=== PATIENT | female | born 1955 | race Caucasian/White ===

== ENCOUNTER → 2016-10-18 | Outpatient (REF) | payer OTHER ==
[2016-10-18 09:21] LABS: ALBUMIN 3.9 GM/DL (3.2-5.2); ALBUMIN/GLOBULIN RATIO 1.26 (1.00-1.93); ALKALINE PHOSPHATASE 98 U/L (45-117); ALT/SGPT 46 U/L (12-78); ANION GAP 8 MEQ/L (8-16); AST/SGOT 18 U/L (15-37); BILIRUBIN,TOTAL 0.5 MG/DL (0.2-1.0); BLOOD UREA NITROGEN 16 MG/DL (7-18); CALCIUM LEVEL 9.2 MG/DL (8.5-10.1); CARBON DIOXIDE LEVEL 30 MEQ/L (21-32); CHLORIDE LEVEL 106 MEQ/L (98-107); CREATININE FOR GFR 0.76 MG/DL (0.55-1.02); GLOMERULAR FILTRATION RATE > 60.0 (>51); GLUCOSE, FASTING 200 MG/DL (70-105); POTASSIUM SERUM 4.5 MEQ/L (3.5-5.1); SODIUM LEVEL 144 MEQ/L (136-145)
== END ==
LOC: M SFHCPLAZ 07:42
PROVIDERS: ATTEND Nurse Practitioner Family
DX: E11.9 Type 2 diabetes mellitus without complications (principal)

== ENCOUNTER → 2016-11-21 | Outpatient (CLI) | payer OTHER | LOC: M HL 15:18 | PROVIDERS: ATTEND Nurse Practitioner Family | DX: E11.9 Type 2 diabetes mellitus without complications (principal) ==

== ENCOUNTER → 2017-01-15 | Outpatient (REF) | payer OTHER ==
[2017-01-15 18:48] LABS: ANION GAP 9 MEQ/L (8-16); BLOOD UREA NITROGEN 25 MG/DL (7-18); CALCIUM LEVEL 9.6 MG/DL (8.5-10.1); CARBON DIOXIDE LEVEL 30 MEQ/L (21-32); CHLORIDE LEVEL 104 MEQ/L (98-107); GLOMERULAR FILTRATION RATE > 60.0 (>51); GLUCOSE, FASTING 69 MG/DL (70-105); POTASSIUM SERUM 3.9 MEQ/L (3.5-5.1); SODIUM LEVEL 143 MEQ/L (136-145)
== END ==
LOC: M SFHCPLAZ 15:30
PROVIDERS: ATTEND Nurse Practitioner Family
DX: E11.9 Type 2 diabetes mellitus without complications (principal)

== ENCOUNTER → 2017-04-18 | Outpatient (REF) | payer OTHER ==
[2017-04-18 19:31] LABS: ALBUMIN 4.3 GM/DL (3.2-5.2); ALKALINE PHOSPHATASE 118 U/L (45-117); ALT/SGPT 41 U/L (12-78); ANION GAP 11 MEQ/L (8-16); AST/SGOT 22 U/L (15-37); BILIRUBIN,TOTAL 0.6 MG/DL (0.2-1.0); BLOOD UREA NITROGEN 24 MG/DL (7-18); CALCIUM LEVEL 10.1 MG/DL (8.8-10.2); CARBON DIOXIDE LEVEL 23 MEQ/L (21-32); CHLORIDE LEVEL 107 MEQ/L (98-107); CREATININE FOR GFR 0.94 MG/DL (0.55-1.02); GLOMERULAR FILTRATION RATE > 60.0 (>45); GLUCOSE, FASTING 72 MG/DL (80-110); SODIUM LEVEL 141 MEQ/L (136-145); TOTAL PROTEIN 7.6 GM/DL (6.4-8.2)
== END ==
LOC: M SFHCPLAZ 15:10
PROVIDERS: ATTEND Nurse Practitioner Family
DX: E11.9 Type 2 diabetes mellitus without complications (principal)

== ENCOUNTER → 2017-07-03 | Outpatient (CLI) | payer OTHER ==
--- NOTE | 2017-07-03 17:37 | REP ---
Low-dose noncontrast chest CT: History: Tobacco use. Lung cancer screening study. Comparison chest x-ray May 05, 2014. CT findings: There is a 10 mm noncalcified oval shaped pulmonary nodule in the left upper lobe visible on image #19 of [address] study. There may be an eccentric calcification along the medial aspect of this. The lesion is otherwise noncalcified. No other significant pulmonary nodule is appreciated. There is a small area of focal pleural thickening in the minor fissure on the right, on image number 42 and 43. There is extensive left coronary artery vascular calcification. Impression: Positive screening chest CT study. 10 mm noncalcified pulmonary nodule left upper lobe. Consider standard chest CT, preferably with IV contrast and PET/CT. Signed by Carlos Manuel Snell MD 07/04/2017 08:17 A
== END ==
LOC: M RAD 15:30
PROVIDERS: ATTEND Nurse Practitioner Family
DX: Z72.0 Tobacco use (principal)

== ENCOUNTER → 2017-07-20 | Outpatient (REF) | payer OTHER ==
[2017-07-20 18:05] LABS: ALBUMIN 4.4 GM/DL (3.2-5.2); ALBUMIN/GLOBULIN RATIO 1.38 (1.00-1.93); ALKALINE PHOSPHATASE 131 U/L (45-117); ALT/SGPT 37 U/L (12-78); ANION GAP 9 MEQ/L (8-16); AST/SGOT 14 U/L (15-37); BILIRUBIN,TOTAL 0.4 MG/DL (0.2-1.0); BLOOD UREA NITROGEN 25 MG/DL (7-18); CALCIUM LEVEL 9.6 MG/DL (8.8-10.2); CARBON DIOXIDE LEVEL 26 MEQ/L (21-32); CHLORIDE LEVEL 108 MEQ/L (98-107); CHOLESTEROL LEVEL 183 MG/DL (<200); CREATININE FOR GFR 0.92 MG/DL (0.55-1.02); GLOMERULAR FILTRATION RATE > 60.0 (>45); GLUCOSE, FASTING 169 MG/DL (80-110); SODIUM LEVEL 143 MEQ/L (136-145); TOTAL PROTEIN 7.6 GM/DL (6.4-8.2); TRIGLYCERIDES LEVEL 398 MG/DL (<150)
== END ==
LOC: M SFHCPLAZ 15:07
PROVIDERS: ATTEND Nurse Practitioner Family
DX: E78.5 Hyperlipidemia, unspecified (principal); E11.9 Type 2 diabetes mellitus without complications

== ENCOUNTER → 2017-08-15 | Outpatient (CLI) | payer OTHER ==
--- NOTE | 2017-08-15 16:00 | REPMRS ---
Patient History The patient states she had a clinical breast exam in 08/2017. Patient is postmenopausal and has history of other cancer at age 26. Family history of ovarian cancer in mother under age 50, breast cancer in paternal aunt at age 50, and breast cancer in maternal aunt at age 60. Digital Woman Screen Mammo: August 15, 2017 - Exam #: [id number] Bilateral CC and MLO view(s) were taken. Technologist: Kath Pennington, Technologist Prior study comparison: June 23, 2016, digital woman screen mammo performed at [facility]. May 26, 2015, digital woman screen mammo performed at [facility]. FINDINGS: There are scattered fibroglandular densities. There has been no change in the appearance of the mammogram from the prior studies. There is a mild amount of residual fibroglandular tissue which is fairly symmetric. There is no interval development of dominant mass, architectural distortion, or clustered microcalcification suggestive of malignancy. ASSESSMENT: BI-RADS/ACR category 1 mammogram. Negative. Recommendation Routine screening mammogram in 1 year (for women over age 40). This mammogram was interpreted with the aid of an FDA-approved computer-aided dectection system. Electronically Signed By: Shon Pascual MD 08/15/17 1600
== END ==
LOC: M WHC 15:14
PROVIDERS: ATTEND Nurse Practitioner Family
DX: Z12.31 Encounter for screening mammogram for malignant neoplasm of breast (principal)

== ENCOUNTER → 2017-08-20 | Outpatient (CLI) | payer OTHER ==
--- NOTE | 2017-08-20 15:37 | PFTRPT ---
Site: [facility], [address] [place] [address], [id number] ID: [id number] Name: JANET BURKETT Doctor: Olman CONNOLLY, Scotty Tech: Amie Fu RRT Age: 62 Sex: Female Race: Height: 62.00 Inches Weight: 127.00 Lbs BSA: 1.58 Diagnosis: R91.1 F17.218 test meet the ATS standards for acceptability and repeatability. Pt was given four puffs of albuterol for postbronchodilator. Hgb 13.5 g/dL Pre-Bronch Post-Bronch Pred Actual %Pred Actual %Chng SPIROMETRY FVC (L) 3.05 2.36 77 2.56 8 FEV1 (L) 2.35 1.98 84 1.99 FEV1/FVC (%) 78 84 107 78 -7 FEF 25% (L/sec) 4.76 5.10 107 5.41 6 FEF 50% (L/sec) 3.61 3.06 84 3.31 8 FEF 75% (L/sec) 1.20 0.88 73 0.70 -19 FEF 25-75% (L/sec) 2.21 2.26 102 2.18 -3 FEF Max (L/sec) 5.96 5.33 89 5.40 1 FIVC (L) 2.15 2.46 14 FIF 50% (L/sec) 3.26 3.10 94 3.88 25 FIF Max (L/sec) 3.17 3.87 22 MVV (L/min) 87 82 94 LUNG VOLUMES SVC (L) 2.85 2.54 89 IC (L) 2.07 2.41 116 ERV (L) 0.78 0.13 16 TGV (L) 2.68 2.39 89 RV (Pleth) (L) 1.90 2.25 118 TLC (Pleth) (L) 4.75 4.79 100 RV/TLC (Pleth) (%) 40 47 117 DIFFUSION DLCOunc (ml/min/mmHg) 20.75 16.56 79 DLCOcor (ml/min/mmHg) 20.75 16.51 79 DL/VA (ml/min/mmHg/L) 4.37 4.24 97 VA (L) 4.75 3.89 81 AIRWAYS RESISTANCE Raw (cmH2O/L/s) 1.86 1.74 93 Gaw (L/s/cmH2O) 1.03 0.62 60 sRaw (cmH2O*s) 4.76 4.25 89 sGaw (1/cmH2O*s) 0.20 0.25 123 BLOOD GASES Hgb (gm/dL) 13.5
== END ==
LOC: M CARPUL 14:36
PROVIDERS: ATTEND Internal Medicine Pulmonary Disease
DX: R91.1 Solitary pulmonary nodule (principal); F17.218 Nicotine dependence, cigarettes, with other nicotine-induced disorders

== ENCOUNTER → 2017-08-21 | Outpatient (CLI) | payer OTHER ==
--- NOTE | 2017-08-21 16:45 | REP ---
PET/CT: History: Solitary pulmonary nodule left upper lobe. Comparisons: Screening low-dose chest CT study July 03, 2017. TECHNIQUE: 55 minutes following the intravenous injection of 10.8 mCi dose of F-18 FDG, three-dimensional PET scintigraphy is acquired from the skull base to the proximal thighs. Triplanar noncontrast CT scanning is acquired through the same anatomic range for attenuation correction, and image registration with scan parameters optimized to minimize radiation exposure to the patient. PET scintigraphy and CT datasets were fused and displayed on a workstation with multiplanar and projection display capability. PET/CT Findings: The left upper lobe pulmonary nodule is again seen on accompanying chest CT. No discernible FDG accumulation is seen within it. Maximum standard uptake value is 0.9. No other abnormal hypermetabolic uptake is seen within the chest. Head and neck soft tissues are unremarkable. No abnormal hypermetabolic uptake is seen in the abdomen or pelvis. No abnormal adrenal uptake is seen. Impression: Negative PET scintigraphy. CT followup for the left upper lobe pulmonary nodule recommended. Signed by Carlos Manuel Snell MD 08/21/2017 07:46 P
== END ==
LOC: M PLARAD 13:28
PROVIDERS: ATTEND Internal Medicine Pulmonary Disease
DX: R91.1 Solitary pulmonary nodule (principal)
CPT/HCPCS: 78815; A9552

== ENCOUNTER → 2017-10-08 | Outpatient (CLI) | payer OTHER | LOC: M RAD 15:03 | DX: R91.1 Solitary pulmonary nodule (principal) | CPT/HCPCS: 71250 ==

== ENCOUNTER → 2017-12-11 | Outpatient (REF) | payer OTHER ==
[2017-12-11 18:41] LABS: ALBUMIN 4.3 GM/DL (3.2-5.2); ALBUMIN/GLOBULIN RATIO 1.26 (1.00-1.93); ALKALINE PHOSPHATASE 124 U/L (45-117); ALT/SGPT 41 U/L (12-78); ANION GAP 8 MEQ/L (8-16); AST/SGOT 19 U/L (7-37); BILIRUBIN,TOTAL 0.5 MG/DL (0.2-1.0); BLOOD UREA NITROGEN 23 MG/DL (7-18); CARBON DIOXIDE LEVEL 31 MEQ/L (21-32); CHLORIDE LEVEL 104 MEQ/L (98-107); CREATININE FOR GFR 0.92 MG/DL (0.55-1.30); GLOMERULAR FILTRATION RATE > 60.0 (>45); GLUCOSE, FASTING 140 MG/DL (70-100); POTASSIUM SERUM 4.1 MEQ/L (3.5-5.1); SODIUM LEVEL 143 MEQ/L (136-145); TOTAL PROTEIN 7.7 GM/DL (6.4-8.2)
[2017-12-11 21:12] LABS: ESTIMATED AVERAGE GLUCOSE 192 MG/DL (60-110); HEMOGLOBIN A1c 8.3 %
== END ==
LOC: M SFHCPLAZ 16:56
DX: E11.9 Type 2 diabetes mellitus without complications (principal)
CPT/HCPCS: 83036

== ENCOUNTER → 2018-02-28 | Outpatient (REF) | payer OTHER | LOC: M SFHCPLAZ 16:15 | DX: E78.5 Hyperlipidemia, unspecified (principal); E11.9 Type 2 diabetes mellitus without complications ==

== ENCOUNTER → 2018-03-27 | Outpatient (REF) | payer OTHER ==
[2018-03-27 14:03] LABS: ALBUMIN 4.2 GM/DL (3.2-5.2); ALBUMIN/GLOBULIN RATIO 1.31 (1.00-1.93); ALKALINE PHOSPHATASE 111 U/L (45-117); ALT/SGPT 39 U/L (12-78); ANION GAP 12 MEQ/L (8-16); AST/SGOT 19 U/L (7-37); BILIRUBIN,TOTAL 0.6 MG/DL (0.2-1.0); BLOOD UREA NITROGEN 23 MG/DL (7-18); CALCIUM LEVEL 9.4 MG/DL (8.8-10.2); CARBON DIOXIDE LEVEL 26 MEQ/L (21-32); CHLORIDE LEVEL 105 MEQ/L (98-107); CREATININE FOR GFR 0.96 MG/DL (0.55-1.30); GLOMERULAR FILTRATION RATE > 60.0 (>45); GLUCOSE, FASTING 197 MG/DL (70-100); POTASSIUM SERUM 4.1 MEQ/L (3.5-5.1); SODIUM LEVEL 143 MEQ/L (136-145); TOTAL PROTEIN 7.4 GM/DL (6.4-8.2)
[2018-03-27 14:15] LABS: ESTIMATED AVERAGE GLUCOSE 180 MG/DL (60-110); HEMOGLOBIN A1c 7.9 %
== END ==
LOC: M SFHCPLAZ 10:52
DX: E11.9 Type 2 diabetes mellitus without complications (principal)
CPT/HCPCS: 80053

== ENCOUNTER → 2018-04-16 | Outpatient (CLI) | payer OTHER | LOC: M RAD 15:30 | DX: R91.1 Solitary pulmonary nodule (principal); J98.4 Other disorders of lung | CPT/HCPCS: 71250 ==

== ENCOUNTER → 2018-05-15 | Outpatient (REF) ==
[2018-05-15 12:55] LABS: RUBELLA IgG QUALITATIVE IMMUNE (IMMUNE)
[2018-05-16 08:06] LABS: RUBEOLA IgG ANTIBODY >300.0 AU/mL (Immune >29.9)
== END ==
LOC: M LAB 11:34
DX: Z00.00 Encounter for general adult medical examination without abnormal findings (principal)

== ENCOUNTER → 2018-07-16 | Outpatient (REF) | payer OTHER ==
[2018-07-16 12:02] LABS: ESTIMATED AVERAGE GLUCOSE 157 MG/DL (60-110); HEMOGLOBIN A1c 7.1 %
[2018-07-16 12:17] LABS: ALBUMIN/GLOBULIN RATIO 1.21 (1.00-1.93); ALKALINE PHOSPHATASE 116 U/L (45-117); ALT/SGPT 40 U/L (12-78); ANION GAP 12 MEQ/L (8-16); AST/SGOT 20 U/L (7-37); BILIRUBIN,TOTAL 0.6 MG/DL (0.2-1.0); BLOOD UREA NITROGEN 23 MG/DL (7-18); CALCIUM LEVEL 8.8 MG/DL (8.8-10.2); CARBON DIOXIDE LEVEL 23 MEQ/L (21-32); CHLORIDE LEVEL 109 MEQ/L (98-107); CHOLESTEROL LEVEL 168 MG/DL (<200); CREATININE FOR GFR 0.92 MG/DL (0.55-1.30); GLOMERULAR FILTRATION RATE > 60.0 (>45); GLUCOSE, FASTING 236 MG/DL (70-100); HDL CHOLESTEROL 35 MG/DL (>40); LDL CHOLESTEROL 101 MG/DL (<100); NON-HDL-C 133 MG/DL; POTASSIUM SERUM 4.1 MEQ/L (3.5-5.1); SODIUM LEVEL 144 MEQ/L (136-145); TOTAL PROTEIN 7.3 GM/DL (6.4-8.2); TRIGLYCERIDES LEVEL 158 MG/DL (<150)
[2018-07-16 12:32] LABS: CREATININE, URINE 31.7 MG/DL; MALB URINE SIEMENS 8.8 MG/L
[2018-07-16 12:33] LABS: MAU/CREAT RATIO 27.6 MCG/MG (0.0-30.0)
== END ==
LOC: M SFHCPLAZ 09:26
DX: E11.9 Type 2 diabetes mellitus without complications (principal); E78.5 Hyperlipidemia, unspecified; K75.81 Nonalcoholic steatohepatitis (NASH)
CPT/HCPCS: 80053

== ENCOUNTER → 2018-10-22 | Outpatient (CLI) | payer OTHER ==
[~2018-10-22] MED LIST: ASPI1TAB15; ATOR40TA75; GEMF600T5; JARD1TAB; LIPI80TA; METF500T13; TOUJ1.2I; TRUL0.5I SC
--- NOTE | 2018-10-23 08:48 | REP ---
Clinical: Follow-up pulmonary nodule. Technique: She will noncontrast images from the thoracic inlet to the upper abdomen with coronal and sagittal re-formations. Comparison: 04/06/2018, 10/08/2017, 07/03/2017. Findings: The main pulmonary nodule in the anteromedial left upper lobe (image 24) remains stable on all chest CTs dating through 07/03/2017 and can also be identified on the thoracic spine CT dated 09/05/2016 and remains stable. A 9 mm non solid density inseparable from the minor fissure (image 48) also remains stable. The lung dahl are otherwise well aerated, symmetric and clear. No further consolidation, suspicious nodule or mass lesion. No pleural effusion or pneumothorax. Tracheobronchial tree is patent. The mediastinum again demonstrates atherosclerotic disease to the thoracic aorta and coronary arteries without aortic aneurysm or cardiomegaly. No pericardial effusion. Surrounding musculoskeletal structures are intact. Limited upper abdomen demonstrates normal bilateral adrenal glands. Impression: 1. Stable left upper lobe nodule and non solid right-sided density. Findings suggest chronic benign changes. 2. No acute mediastinal or pleuroparenchymal process. 3. Atherosclerotic disease to the aorta and coronary arteries. Electronically Signed by Juan Gorman MD 10/23/2018 08:39 A
== END ==
LOC: M RAD 15:32
PROVIDERS: ATTEND Internal Medicine Pulmonary Disease
DX: I70.0 Atherosclerosis of aorta (principal); R91.1 Solitary pulmonary nodule

== ENCOUNTER → 2018-12-13 | Outpatient (REF) | payer OTHER | LOC: M SFHCPLAZ 16:04 | PROVIDERS: ATTEND Nurse Practitioner Family | DX: E11.9 Type 2 diabetes mellitus without complications (principal); K75.81 Nonalcoholic steatohepatitis (NASH); E55.9 Vitamin D deficiency, unspecified; Z53.9 Procedure and treatment not carried out, unspecified reason ==

== ENCOUNTER → 2019-01-02 | Outpatient (REF) | payer OTHER ==
[2019-01-02 17:51] LABS: ALBUMIN 4.2 GM/DL (3.2-5.2); ALT/SGPT 35 U/L (12-78); BILIRUBIN,TOTAL 0.4 MG/DL (0.2-1.0); BLOOD UREA NITROGEN 21 MG/DL (7-18); CALCIUM LEVEL 9.7 MG/DL (8.8-10.2); CARBON DIOXIDE LEVEL 26 MEQ/L (21-32); CHLORIDE LEVEL 111 MEQ/L (98-107); CREATININE FOR GFR 0.94 MG/DL (0.55-1.30); GLOMERULAR FILTRATION RATE > 60.0 (>45); GLUCOSE, FASTING 98 MG/DL (70-100); SODIUM LEVEL 143 MEQ/L (136-145); TOTAL PROTEIN 7.3 GM/DL (6.4-8.2)
[2019-01-02 18:02] LABS: TOTAL 25(OH) VITAMIN D 35.1 NG/ML (30.0-100.0)
[2019-01-02 19:32] LABS: HEMOGLOBIN A1c 7.1 %
== END ==
LOC: M SFHCPLAZ 15:27
PROVIDERS: ATTEND Nurse Practitioner Family
DX: E11.9 Type 2 diabetes mellitus without complications (principal); E55.9 Vitamin D deficiency, unspecified

== ENCOUNTER → 2019-01-09 | Outpatient (REF) | payer OTHER ==
[2019-01-11 14:43] LABS: HPV HYBRID CAPTURE II Negative (Negative)
== END ==
LOC: M SFHCWAGY 15:52
PROVIDERS: ATTEND Nurse Practitioner Family
DX: Z12.4 Encounter for screening for malignant neoplasm of cervix (principal)

== ENCOUNTER → 2019-01-09 | Outpatient (CLI) | payer OTHER ==
--- NOTE | 2019-01-09 17:57 | REPMRS ---
Patient History The patient states she had a clinical breast exam in 12/2018. Patient is postmenopausal and has history of other cancer at age 26. Family history of breast cancer at age 50 in paternal aunt, breast cancer at age 60 in maternal aunt, ovarian cancer under age 50 in mother. Digital Woman Screen Mammo: January 09, 2019 - Exam #: [id number] Bilateral CC and MLO view(s) were taken. Technologist: Martha Disla Technologist Prior study comparison: August 15, 2017, digital woman screen mammo performed at [facility]. June 23, 2016, digital woman screen mammo performed at [facility]. May 26, 2015, digital woman screen mammo performed at [email or web address] [facility]. FINDINGS: There are scattered fibroglandular densities. There is a moderate amount of residual fibroglandular tissue which is fairly symmetric. There is no interval development of dominant mass, architectural distortion, or clustered microcalcification typical of malignancy. There has been no change in the appearance of the mammogram from the prior studies. 3-D tomosynthesis shows no additional findings. Assessment: BI-RADS/ACR category 1 mammogram. Negative Mammogram. Recommendation Routine screening mammogram of both breasts in 1 year (for women over age 40). This patient's Lifetime Breast Cancer RIsk is estimated at 12.9 %. This mammogram was interpreted with the aid of an FDA-approved computer-aided dectection system. Electronically Signed By: Nate Snell MD 01/09/19 [id number]
== END ==
LOC: M WHC 15:31
PROVIDERS: ATTEND Nurse Practitioner Family
DX: Z12.31 Encounter for screening mammogram for malignant neoplasm of breast (principal); Z80.3 Family history of malignant neoplasm of breast; Z80.41 Family history of malignant neoplasm of ovary

== ENCOUNTER → 2019-03-26 | Outpatient (REF) | payer OTHER ==
[2019-03-26 16:06] LABS: ALBUMIN 3.7 GM/DL (3.2-5.2); ALT/SGPT 31 U/L (12-78); BILIRUBIN,TOTAL 0.4 MG/DL (0.2-1.0); BLOOD UREA NITROGEN 20 MG/DL (7-18); CALCIUM LEVEL 9.7 MG/DL (8.8-10.2); CARBON DIOXIDE LEVEL 29 MEQ/L (21-32); CHLORIDE LEVEL 108 MEQ/L (98-107); CREATININE FOR GFR 0.83 MG/DL (0.55-1.30); GLOMERULAR FILTRATION RATE > 60.0 (>45); GLUCOSE, FASTING 87 MG/DL (70-100); POTASSIUM SERUM 3.9 MEQ/L (3.5-5.1); SODIUM LEVEL 144 MEQ/L (136-145); TOTAL PROTEIN 7.4 GM/DL (6.4-8.2)
[2019-03-26 16:16] LABS: TOTAL 25(OH) VITAMIN D 31.4 NG/ML (30.0-100.0)
== END ==
LOC: M SFHCPLAZ 14:17
PROVIDERS: ATTEND Nurse Practitioner Family
DX: E11.9 Type 2 diabetes mellitus without complications (principal); K76.0 Fatty (change of) liver, not elsewhere classified; E55.9 Vitamin D deficiency, unspecified

== ENCOUNTER → 2019-05-02 | Outpatient (CLI) | payer OTHER ==
--- NOTE | 2019-05-02 15:20 | REP ---
Clinical: Follow-up pulmonary nodule. Technique: Axial noncontrast images from the thoracic inlet to the upper abdomen with coronal and sagittal re-formations. Comparison: 07/03/2017, 04/16/2018 Findings: 9 mm noncalcified nodule in the anteromedial left upper lobe remains stable. Smaller scattered densities likely representing small areas of scarring are also identified and stable. No acute consolidation, new significant nodule, or mass lesion. No pleural effusion. No pneumothorax. Tracheobronchial tree is patent. Atherosclerotic changes to the thoracic aorta and coronary arteries noted without aortic aneurysm or cardiomegaly. No pericardial effusion. No adenopathy. Musculoskeletal structures demonstrate age-related changes. Impression: 1. A 9 mm noncalcified nodule in the left upper lobe remains stable. Finding likely represents benign entity. Consider 6 - 9-month follow-up to ensure stability over greater than 2 years interval. 2. No new significant mediastinal or pleuroparenchymal process appreciated. Electronically Signed by Juan Gorman MD 05/02/2019 03:11 P
== END ==
LOC: M RAD 14:38
PROVIDERS: ATTEND Internal Medicine Pulmonary Disease
DX: R91.1 Solitary pulmonary nodule (principal)

== ENCOUNTER → 2019-12-31 | Outpatient (REF) | payer OTHER ==
[2019-12-31 10:26] LABS: HEMOGLOBIN A1c 7.3 %
[2019-12-31 10:35] LABS: ALBUMIN 4.2 GM/DL (3.2-5.2); ALT/SGPT 33 U/L (12-78); BILIRUBIN,TOTAL 0.4 MG/DL (0.2-1.0); BLOOD UREA NITROGEN 20 MG/DL (7-18); CALCIUM LEVEL 9.4 MG/DL (8.8-10.2); CARBON DIOXIDE LEVEL 28 MEQ/L (21-32); CHLORIDE LEVEL 111 MEQ/L (98-107); CHOLESTEROL LEVEL 155 MG/DL (<200); CHOLESTEROL RISK RATIO 4.428 (<5); CREATININE FOR GFR 0.81 MG/DL (0.55-1.30); GLOMERULAR FILTRATION RATE > 60.0 (>45); GLUCOSE, FASTING 75 MG/DL (70-100); HDL CHOLESTEROL 35 MG/DL (>40); LDL CHOLESTEROL 93 MG/DL (<100); NON-HDL-C 120 MG/DL; POTASSIUM SERUM 4.9 MEQ/L (3.5-5.1); SODIUM LEVEL 143 MEQ/L (136-145); TOTAL PROTEIN 7.7 GM/DL (6.4-8.2); TRIGLYCERIDES LEVEL 133 MG/DL (<150)
[2019-12-31 11:23] LABS: TOTAL 25(OH) VITAMIN D 39.9 NG/ML (30.0-100.0)
[2019-12-31 14:03] LABS: CREATININE, URINE 65.4 MG/DL; MALB URINE SIEMENS 34.7 MG/L
== END ==
LOC: M SFHCPLAZ 07:55
PROVIDERS: ATTEND Nurse Practitioner Family
DX: E11.9 Type 2 diabetes mellitus without complications (principal); E78.2 Mixed hyperlipidemia; E55.9 Vitamin D deficiency, unspecified

== ENCOUNTER → 2020-02-11 | Outpatient (CLI) | payer OTHER ==
--- NOTE | 2020-02-11 10:47 | REPMRS ---
Patient History The patient states she had a clinical breast exam in January 2020.Family history of breast cancer at age 50 in paternal aunt, breast cancer at age 60 in maternal aunt, ovarian cancer under age 50 in mother. Digital Woman Screen Mammo: February 11, 2020 - Exam #: [id number] Bilateral CC and MLO view(s) were taken. Technologist: Flor Ni, Technologist Prior study comparison: January 09, 2019, bilateral digital woman screen mammo performed at [facility]. August 15, 2017, digital woman screen mammo performed at [facility]. June 23, 2016, digital woman screen mammo performed at [facility]. FINDINGS: The breast tissue is heterogeneously dense. This may lower the sensitivity of mammography. The Volpara volumetric breast density category is: C. There is a moderate amount of heterogeneously dense fibroglandular tissue which is fairly symmetric. There is no interval development of dominant mass, architectural distortion, or grouped microcalcification typical of malignancy. There has been no change in the appearance of the mammogram from the prior studies. 3-D tomosynthesis shows no additional findings. Assessment: BI-RADS/ACR category 1 mammogram. Negative Mammogram. Recommendation Routine screening mammogram of both breasts in 1 year (for women over age 40). This patient's Lifetime Breast Cancer RIsk is estimated at 12.0 %. This mammogram was interpreted with the aid of an FDA-approved computer-aided dectection system. Electronically Signed By: Nate Snell MD 02/11/20 [id number]
== END ==
LOC: M WHC 08:51
PROVIDERS: ATTEND Nurse Practitioner Family
DX: Z12.31 Encounter for screening mammogram for malignant neoplasm of breast (principal); Z80.41 Family history of malignant neoplasm of ovary

== ENCOUNTER → 2020-06-11 | Outpatient (CLI) | payer OTHER ==
[~2020-06-11] MED LIST changes: +ASPI-546; -ASPI1TAB15
--- NOTE | 2020-06-29 16:36 | REP ---
LOW-DOSE LUNG SCREENING CT CLINICAL: Personal history of nicotine dependence. TECHNIQUE: Axial noncontrast images from the thoracic inlet to the upper abdomen using low-dose lung screening technique. COMPARISON: 10/08/2017. FINDINGS: A 9 mm nodular density in the apical left upper lobe (Image 17), as well as a 6 mm perifissural density in the right lung (Image 38), remain stable compared to 10/08/2017. The lung dahl are otherwise well-aerated and clear. No consolidation or suspicious nodule/mass lesion is appreciated. The tracheobronchial tree is patent. There is no effusion. Limited evaluation of the mediastinum demonstrates atherosclerotic changes to the thoracic aorta and coronary arteries. IMPRESSION: Lung-RADS 2 benign stable lesions. Management and recommendations include annual low-dose CT evaluation. MTDD
== END ==
LOC: M RAD 15:01
PROVIDERS: ATTEND Internal Medicine Pulmonary Disease
DX: Z12.2 Encounter for screening for malignant neoplasm of respiratory organs (principal); Z87.891 Personal history of nicotine dependence

== ENCOUNTER → 2020-06-30 | Outpatient (REF) | payer OTHER ==
[2020-06-30 14:35] LABS: CREATININE, URINE 49.9 MG/DL; MALB URINE SIEMENS 14.8 MG/L; MAU/CREAT RATIO 29.6 MCG/MG (0.0-30.0)
[2020-06-30 14:50] LABS: HEMOGLOBIN A1c 7.1 %
[2020-06-30 14:53] LABS: ALBUMIN 3.8 GM/DL (3.2-5.2); ALT/SGPT 91 U/L (12-78); BILIRUBIN,TOTAL 0.8 MG/DL (0.2-1.0); BLOOD UREA NITROGEN 14 MG/DL (7-18); CALCIUM LEVEL 9.5 MG/DL (8.8-10.2); CARBON DIOXIDE LEVEL 28 MEQ/L (21-32); CHLORIDE LEVEL 106 MEQ/L (98-107); CREATININE FOR GFR 0.85 MG/DL (0.55-1.30); GLOMERULAR FILTRATION RATE > 60.0 (>45); GLUCOSE, FASTING 263 MG/DL (70-100); POTASSIUM SERUM 4.1 MEQ/L (3.5-5.1); SODIUM LEVEL 140 MEQ/L (136-145); TOTAL PROTEIN 6.9 GM/DL (6.4-8.2)
[2020-06-30 14:59] LABS: TOTAL 25(OH) VITAMIN D 39.1 NG/ML (30.0-100.0)
== END ==
LOC: M PLALAB 10:18
PROVIDERS: ATTEND Nurse Practitioner Family
DX: E55.9 Vitamin D deficiency, unspecified (principal); E11.9 Type 2 diabetes mellitus without complications; Z79.84 Long term (current) use of oral hypoglycemic drugs

== ENCOUNTER → 2021-01-03 | Outpatient (REF) | payer OTHER ==
[2021-01-03 11:43] LABS: HEMOGLOBIN A1c 6.7 %
[2021-01-03 12:18] LABS: CREATININE, URINE 66.7 MG/DL; MALB URINE SIEMENS 41.4 MG/L
[2021-01-03 12:25] LABS: ALBUMIN 4.2 GM/DL (3.2-5.2); ALT/SGPT 61 U/L (12-78); BILIRUBIN,TOTAL 0.9 MG/DL (0.2-1.0); BLOOD UREA NITROGEN 19 MG/DL (7-18); CALCIUM LEVEL 9.9 MG/DL (8.8-10.2); CARBON DIOXIDE LEVEL 29 MEQ/L (21-32); CHLORIDE LEVEL 109 MEQ/L (98-107); CHOLESTEROL LEVEL 172 MG/DL (<200); CHOLESTEROL RISK RATIO 3.739 (<5); CREATININE FOR GFR 0.72 MG/DL (0.55-1.30); GLOMERULAR FILTRATION RATE > 60.0 (>45); GLUCOSE, FASTING 96 MG/DL (70-100); HDL CHOLESTEROL 46 MG/DL (>40); LDL CHOLESTEROL 79 MG/DL (<100); NON-HDL-C 126 MG/DL; POTASSIUM SERUM 4.7 MEQ/L (3.5-5.1); SODIUM LEVEL 144 MEQ/L (136-145); TOTAL 25(OH) VITAMIN D 32.6 NG/ML (30.0-100.0); TOTAL PROTEIN 7.6 GM/DL (6.4-8.2); TRIGLYCERIDES LEVEL 237 MG/DL (<150)
== END ==
LOC: M PLALAB 08:18
PROVIDERS: ATTEND Nurse Practitioner Family
DX: E11.9 Type 2 diabetes mellitus without complications (principal); E78.2 Mixed hyperlipidemia; E55.9 Vitamin D deficiency, unspecified

== ENCOUNTER → 2021-02-17 | Outpatient (CLI) | payer OTHER ==
--- NOTE | 2021-02-17 17:02 | REPMRS ---
Patient History The patient states she had a clinical breast exam in 01/2021. Patient is postmenopausal and has history of other cancer at age 26. Family history of breast cancer at age 50 in paternal aunt, breast cancer at age 60 in maternal aunt, ovarian cancer under age 50 in mother. No Hormone Replacement Therapy Patient states no breast complaints today. Patient has signed MRS History Sheet. Digital Woman Screen Mammo: February 17, 2021 - Exam #: [id number] Bilateral CC and MLO view(s) were taken. Technologist: Kath Pennington, Technologist Prior study comparison: February 11, 2020, bilateral digital woman screen mammo performed at [facility]. January 09, 2019, bilateral digital woman screen mammo performed at [facility]. August 15, 2017, digital woman screen mammo performed at [facility]. FINDINGS: There are scattered fibroglandular densities. The Volpara volumetric breast density category is:B. There has been no change in the appearance of the mammogram from the prior studies. There is a mild amount of scattered fibroglandular density which is fairly symmetric. There is no interval development of dominant mass, architectural distortion, or grouped microcalcification suggestive of malignancy. 3-D tomosynthesis shows no additional findings. Assessment: BI-RADS/ACR category 1 mammogram. Negative Mammogram. Recommendation Routine screening mammogram of both breasts in 1 year (for women over age 40). This patient's [facility] Lifetime Breast Cancer Risk is estimated at 11.5 %. This mammogram was interpreted with the aid of an FDA-approved computer-aided dectection system. Electronically Signed By: Nate Snell MD 02/17/21 [id number]
== END ==
LOC: M WHC 15:25
PROVIDERS: ATTEND Nurse Practitioner Women's Health
DX: Z12.31 Encounter for screening mammogram for malignant neoplasm of breast (principal); Z78.0 Asymptomatic menopausal state; Z85.89 Personal history of malignant neoplasm of other organs and systems; Z80.41 Family history of malignant neoplasm of ovary

== ENCOUNTER → 2021-02-17 | Outpatient (REF) | payer OTHER | LOC: M SFHCWAGY 09:56 | PROVIDERS: ATTEND Nurse Practitioner Women's Health | DX: Z12.4 Encounter for screening for malignant neoplasm of cervix (principal) ==

== ENCOUNTER → 2021-02-23 | Outpatient (REF) | payer OTHER ==
[2021-02-23 14:17] LABS: BLOOD UREA NITROGEN 18 MG/DL (7-18); CALCIUM LEVEL 9.5 MG/DL (8.8-10.2); CARBON DIOXIDE LEVEL 27 MEQ/L (21-32); CHLORIDE LEVEL 108 MEQ/L (98-107); CREATININE FOR GFR 0.77 MG/DL (0.55-1.30); GLOMERULAR FILTRATION RATE > 60.0 (>45); GLUCOSE, FASTING 90 MG/DL (70-100); POTASSIUM SERUM 4.2 MEQ/L (3.5-5.1); SODIUM LEVEL 141 MEQ/L (136-145)
[2021-02-23 14:29] LABS: MALB URINE SIEMENS 25.6 MG/L; MAU/CREAT RATIO 36.5 MCG/MG (0.0-30.0)
== END ==
LOC: M PLALAB 09:59
PROVIDERS: ATTEND Nurse Practitioner Family
DX: E11.9 Type 2 diabetes mellitus without complications (principal)

== ENCOUNTER → 2021-04-01 | Outpatient (CLI) | payer OTHER ==
[2021-04-01 17:06] LABS: BLOOD UREA NITROGEN 20 MG/DL (7-18); CALCIUM LEVEL 9.7 MG/DL (8.8-10.2); CARBON DIOXIDE LEVEL 28 MEQ/L (21-32); CHLORIDE LEVEL 108 MEQ/L (98-107); CREATININE FOR GFR 0.96 MG/DL (0.55-1.30); GLOMERULAR FILTRATION RATE > 60.0 (>45); GLUCOSE, FASTING 107 MG/DL (70-100); POTASSIUM SERUM 4.5 MEQ/L (3.5-5.1); SODIUM LEVEL 142 MEQ/L (136-145)
[2021-04-01 17:20] LABS: MALB URINE SIEMENS 43.2 MG/L; MAU/CREAT RATIO 37.2 MCG/MG (0.0-30.0)
== END ==
LOC: M PLALAB 15:22
PROVIDERS: ATTEND Nurse Practitioner Family
DX: R80.9 Proteinuria, unspecified (principal)

== ENCOUNTER → 2021-07-22 | Outpatient (CLI) | payer OTHER ==
[2021-07-22 10:40] LABS: HEMOGLOBIN A1c 6.5 %
[2021-07-22 10:53] LABS: CREATININE, URINE 77.7 MG/DL; MALB URINE SIEMENS 24.8 MG/L; MAU/CREAT RATIO 31.9 MCG/MG (0.0-30.0)
[2021-07-22 10:56] LABS: ALBUMIN 3.9 GM/DL (3.2-5.2); ALT/SGPT 40 U/L (12-78); BILIRUBIN,TOTAL 0.8 MG/DL (0.2-1.0); BLOOD UREA NITROGEN 18 MG/DL (7-18); CARBON DIOXIDE LEVEL 30 MEQ/L (21-32); CHLORIDE LEVEL 110 MEQ/L (98-107); CHOLESTEROL LEVEL 138 MG/DL (<200); CHOLESTEROL RISK RATIO 3.942 (<5); CREATININE FOR GFR 0.89 MG/DL (0.55-1.30); GLOMERULAR FILTRATION RATE > 60.0 (>45); GLUCOSE, FASTING 99 MG/DL (70-100); HDL CHOLESTEROL 35 MG/DL (>40); LDL CHOLESTEROL 63 MG/DL (<100); NON-HDL-C 103 MG/DL; POTASSIUM SERUM 4.6 MEQ/L (3.5-5.1); SODIUM LEVEL 143 MEQ/L (136-145); TOTAL 25(OH) VITAMIN D 61.1 NG/ML (30.0-100.0); TOTAL PROTEIN 7.3 GM/DL (6.4-8.2); TRIGLYCERIDES LEVEL 200 MG/DL (<150)
== END ==
LOC: M PLALAB 08:27
PROVIDERS: ATTEND Nurse Practitioner Family
DX: E11.9 Type 2 diabetes mellitus without complications (principal); E78.2 Mixed hyperlipidemia; E55.9 Vitamin D deficiency, unspecified

== ENCOUNTER → 2021-11-09 | Outpatient (CLI) | payer OTHER | LOC: M RAD 15:35 | PROVIDERS: ATTEND Internal Medicine Pulmonary Disease | DX: Z12.2 Encounter for screening for malignant neoplasm of respiratory organs (principal); Z87.891 Personal history of nicotine dependence; R91.8 Other nonspecific abnormal finding of lung field ==

== ENCOUNTER → 2022-01-16 | Outpatient (CLI) | payer MEDICARE, OTHER ==
[2022-01-16 13:37] LABS: BASO % 0.1 % (0.0-1.0); EOS # 0.1 10^3/uL (0.0-0.5); EOS % 1.2 % (0.0-3.0); HEMATOCRIT 40.8 % (36.0-47.0); LYMPH # 0.5 10^3/uL (1.5-5.0); MEAN CORPUSCULAR HEMOGLOBIN 28.8 pg (27.0-33.0); MEAN CORPUSCULAR HGB CONC 31.9 g/dl (32.0-36.5); MEAN CORPUSCULAR VOLUME 90.3 fl (80.0-96.0); MONO # 0.3 10^3/uL (0.0-0.8); MONO % 3.2 % (2.0-8.0); NEUTROPHILS # 6.9 10^3/uL (1.5-8.5); NEUTROPHILS % 89.2 % (36.0-66.0); PLATELET COUNT, AUTOMATED 185 10^3/uL (150-450); RED BLOOD COUNT 4.52 10^6/uL (4.00-5.40); WHITE BLOOD COUNT 7.7 10^3/uL (4.0-10.0)
[2022-01-16 14:17] LABS: ALT/SGPT 58 U/L (12-78); BILIRUBIN,TOTAL 0.9 MG/DL (0.2-1.0); BLOOD UREA NITROGEN 20 MG/DL (7-18); CALCIUM LEVEL 9.2 MG/DL (8.8-10.2); CARBON DIOXIDE LEVEL 26 MEQ/L (21-32); CHLORIDE LEVEL 109 MEQ/L (98-107); CHOLESTEROL LEVEL 128 MG/DL (<200); CHOLESTEROL RISK RATIO 3.368 (<5); CREATININE FOR GFR 0.71 MG/DL (0.55-1.30); FREE T4 1.06 NG/DL (0.76-1.46); GLOMERULAR FILTRATION RATE > 60.0 (>45); GLUCOSE, FASTING 63 MG/DL (70-100); HDL CHOLESTEROL 38 MG/DL (>40); LDL CHOLESTEROL 61 MG/DL (<100); NON-HDL-C 90 MG/DL; SODIUM LEVEL 141 MEQ/L (136-145); THYROID STIMULATING HORMONE 0.601 uIU/ML (0.358-3.740); TOTAL 25(OH) VITAMIN D 58.8 NG/ML (30.0-100.0); TOTAL PROTEIN 7.1 GM/DL (6.4-8.2); TRIGLYCERIDES LEVEL 143 MG/DL (<150)
[2022-01-16 14:28] LABS: MALB URINE SIEMENS 26.2 MG/L; MAU/CREAT RATIO 23.3 MCG/MG (0.0-30.0)
== END ==
LOC: M PLALAB 08:41
PROVIDERS: ATTEND Physician Assistant
DX: E11.29 Type 2 diabetes mellitus with other diabetic kidney complication (principal); E78.2 Mixed hyperlipidemia; E55.9 Vitamin D deficiency, unspecified; Z79.899 Other long term (current) drug therapy

== ENCOUNTER → 2022-02-20 | Outpatient (CLI) | payer MEDICARE | LOC: M WHC 09:01 | PROVIDERS: ATTEND Obstetrics & Gynecology | DX: Z12.31 Encounter for screening mammogram for malignant neoplasm of breast (principal); Z80.41 Family history of malignant neoplasm of ovary ==

== ENCOUNTER → 2022-07-12 | Outpatient (CLI) | payer MEDICARE ==
[2022-07-12 10:25] LABS: BASO % 0.7 % (0.0-1.0); EOS # 0.3 10^3/uL (0.0-0.5); EOS % 4.6 % (0.0-3.0); HEMATOCRIT 39.6 % (36.0-47.0); HEMOGLOBIN 12.3 g/dl (12.0-15.5); LYMPH # 1.7 10^3/uL (1.5-5.0); LYMPH % 31.7 % (24.0-44.0); MEAN CORPUSCULAR HEMOGLOBIN 26.5 pg (27.0-33.0); MEAN CORPUSCULAR HGB CONC 31.1 g/dl (32.0-36.5); MEAN CORPUSCULAR VOLUME 85.2 fl (80.0-96.0); MONO # 0.5 10^3/uL (0.0-0.8); MONO % 8.8 % (2.0-8.0); NEUTROPHILS # 2.9 10^3/uL (1.5-8.5); PLATELET COUNT, AUTOMATED 181 10^3/uL (150-450); RED BLOOD COUNT 4.65 10^6/uL (4.00-5.40); WHITE BLOOD COUNT 5.5 10^3/uL (4.0-10.0)
[2022-07-12 10:48] LABS: HEMOGLOBIN A1c 7.1 %
[2022-07-12 11:14] LABS: MAU/CREAT RATIO 36.3 MCG/MG (0.0-30.0)
[2022-07-12 11:16] LABS: BLOOD UREA NITROGEN 18 MG/DL (7-18); CALCIUM LEVEL 9.5 MG/DL (8.8-10.2); CARBON DIOXIDE LEVEL 28 MEQ/L (21-32); CHLORIDE LEVEL 109 MEQ/L (98-107); CREATININE FOR GFR 0.87 MG/DL (0.55-1.30); GLOMERULAR FILTRATION RATE > 60.0 (>45); GLUCOSE, FASTING 126 MG/DL (70-100); POTASSIUM SERUM 4.5 MEQ/L (3.5-5.1); SODIUM LEVEL 141 MEQ/L (136-145)
== END ==
LOC: M PLALAB 08:45
PROVIDERS: ATTEND Physician Assistant
DX: E11.29 Type 2 diabetes mellitus with other diabetic kidney complication (principal)

== ENCOUNTER → 2022-11-20 | Outpatient (CLI) | payer MEDICARE | LOC: M RAD 12:25 | PROVIDERS: ATTEND Internal Medicine Pulmonary Disease | DX: Z12.2 Encounter for screening for malignant neoplasm of respiratory organs (principal); Z87.891 Personal history of nicotine dependence; R91.8 Other nonspecific abnormal finding of lung field ==

== ENCOUNTER → 2023-01-09 | Outpatient (CLI) | payer MEDICARE ==
[2023-01-09 16:54] LABS: BASO % 0.7 % (0.0-1.0); EOS # 0.3 10^3/uL (0.0-0.5); EOS % 5.4 % (0.0-3.0); HEMATOCRIT 40.3 % (36.0-47.0); HEMOGLOBIN 12.5 g/dl (12.0-15.5); LYMPH # 2.2 10^3/uL (1.5-5.0); LYMPH % 35.1 % (24.0-44.0); MEAN CORPUSCULAR VOLUME 90.4 fl (80.0-96.0); MONO # 0.5 10^3/uL (0.0-0.8); MONO % 7.3 % (2.0-8.0); NEUTROPHILS # 3.2 10^3/uL (1.5-8.5); NEUTROPHILS % 51.2 % (36.0-66.0); PLATELET COUNT, AUTOMATED 185 10^3/uL (150-450); RED BLOOD COUNT 4.46 10^6/uL (4.00-5.40); WHITE BLOOD COUNT 6.2 10^3/uL (4.0-10.0)
[2023-01-09 17:17] LABS: HEMOGLOBIN A1c 6.8 % (4.0-6.0)
[2023-01-09 17:18] LABS: ALBUMIN 4.1 G/DL (3.2-5.2); ALKALINE PHOSPHATASE 103 U/L (46-116); ALT/SGPT 37 U/L (7.0-40); AST/SGOT 23 U/L (<34); BILIRUBIN,TOTAL 0.6 MG/DL (0.3-1.2); BLOOD UREA NITROGEN 20 MG/DL (9-23); CALCIUM LEVEL 9.7 MG/DL (8.3-10.6); CARBON DIOXIDE LEVEL 27 MMOL/L (20-31); CHLORIDE LEVEL 110 MMOL/L (98-107); CHOLESTEROL LEVEL 147 MG/DL (<200); CHOLESTEROL RISK RATIO 3.87 (<5); CREATININE FOR GFR 0.82 MG/DL (0.55-1.30); GLOMERULAR FILTRATION RATE > 60.0 (>45); GLUCOSE, FASTING 146 MG/DL (74-106); HDL CHOLESTEROL 37.9 MG/DL (>40); NON-HDL-C 109.1 MG/DL; POTASSIUM SERUM 4.3 MMOL/L (3.5-5.1); SODIUM LEVEL 145 MMOL/L (136-145); TRIGLYCERIDES LEVEL 423 MG/DL (<150)
== END ==
LOC: M PLALAB 16:08
PROVIDERS: ATTEND Physician Assistant
DX: E11.9 Type 2 diabetes mellitus without complications (principal)

== ENCOUNTER → 2023-02-21 | Outpatient (REF) | LOC: M EMP 14:25 | PROVIDERS: ATTEND Family Medicine | DX: Z11.52 Encounter for screening for COVID-19 (principal) ==

== ENCOUNTER → 2023-03-19 | Outpatient (CLI) | payer MEDICARE | LOC: M WHC 15:07 | PROVIDERS: ATTEND Obstetrics & Gynecology | DX: Z12.31 Encounter for screening mammogram for malignant neoplasm of breast (principal); Z80.41 Family history of malignant neoplasm of ovary ==

== ENCOUNTER 2023-05-18 06:50 | Day surgery (SDC) | payer MEDICARE ==
[~2023-05-18] VITALS: Ht 162.6 cm; Wt 56.2 kg
[~2023-05-18 06:50] MED LIST changes: +B COCAP4 PO; +CALC500T68 PO; +JANU100T PO; +JARD1TAB PO; +LANTINJ4 SC; +LOSA25TA13 PO; -METF500T13; +METF500T13 PO; +NS 1,000 ML IV ONE; +VITA200044 PO
[2023-05-18] MEDS ORDERED: propofoL 200 MG/20 ML VIAL As Ordered ONE (08:15)
[2023-05-18 08:36] VITALS: TEMP 98
[2023-05-18 08:53] VITALS: BP 132/62; O2SAT 98
== END 2023-05-18 08:55 | disposition home or self-care (01) ==
LOC: M SDC 06:50
PROVIDERS: ATTEND Internal Medicine Gastroenterology
DX: Z86.010 Personal history of colon polyps (principal); D12.4 Benign neoplasm of descending colon; K57.30 Diverticulosis of large intestine without perforation or abscess without bleeding; K64.8 Other hemorrhoids; Z87.891 Personal history of nicotine dependence; Z79.02 Long term (current) use of antithrombotics/antiplatelets; Z79.3 Long term (current) use of hormonal contraceptives; Z79.899 Other long term (current) drug therapy; Z88.8 Allergy status to other drugs, medicaments and biological substances; Z91.040 Latex allergy status

== ENCOUNTER → 2023-10-09 | Outpatient (CLI) | payer MEDICARE ==
[~2023-10-09] MED LIST changes: -NS 1,000 ML IV ONE
== END ==
LOC: M WHC 14:24
PROVIDERS: ATTEND Physician Assistant
DX: M85.89 Other specified disorders of bone density and structure, multiple sites (principal)

== ENCOUNTER → 2023-12-27 | Outpatient (CLI) | payer MEDICARE, MEDICAID | LOC: M RAD 09:16 | PROVIDERS: ATTEND Internal Medicine Pulmonary Disease | DX: Z12.2 Encounter for screening for malignant neoplasm of respiratory organs (principal); Z87.891 Personal history of nicotine dependence; I25.10 Atherosclerotic heart disease of native coronary artery without angina pectoris ==

== ENCOUNTER → 2024-01-14 | Outpatient (CLI) | payer MEDICARE, MEDICAID ==
[2024-01-14 11:21] LABS: BASO % 0.5 % (0.0-1.0); EOS # 0.2 10^3/uL (0.0-0.5); EOS % 2.5 % (0.0-3.0); HEMATOCRIT 41.9 % (36.0-47.0); HEMOGLOBIN 13.1 g/dl (12.0-15.5); LYMPH # 1.5 10^3/uL (1.5-5.0); MEAN CORPUSCULAR HEMOGLOBIN 27.8 pg (27.0-33.0); MEAN CORPUSCULAR HGB CONC 31.3 g/dl (32.0-36.5); MONO # 0.5 10^3/uL (0.0-0.8); MONO % 7.9 % (2.0-8.0); NEUTROPHILS # 3.9 10^3/uL (1.5-8.5); NEUTROPHILS % 63.6 % (36.0-66.0); PLATELET COUNT, AUTOMATED 193 10^3/uL (150-450); RED BLOOD COUNT 4.71 10^6/uL (4.00-5.40); WHITE BLOOD COUNT 6.1 10^3/uL (4.0-10.0)
[2024-01-14 11:40] LABS: HEMOGLOBIN A1c 6.8 % (4.0-6.0)
[2024-01-14 11:51] LABS: CREATININE, URINE 24.5 MG/DL; MAU/CREAT RATIO 12.2 MCG/MG (0.0-30.0)
[2024-01-14 11:52] LABS: ALBUMIN 3.7 G/DL (3.2-5.2); ALKALINE PHOSPHATASE 88 U/L (46-116); ALT/SGPT 37 U/L (7.0-40); AST/SGOT 20 U/L (<34); BILIRUBIN,TOTAL 1.2 MG/DL (0.3-1.2); BLOOD UREA NITROGEN 18 MG/DL (9-23); CALCIUM LEVEL 9.7 MG/DL (8.3-10.6); CARBON DIOXIDE LEVEL 28 MMOL/L (20-31); CHLORIDE LEVEL 108 MMOL/L (98-107); CHOLESTEROL LEVEL 132 MG/DL (<200); CHOLESTEROL RISK RATIO 3.56 (<5); CREATININE FOR GFR 0.77 MG/DL (0.55-1.30); FREE T4 1.18 NG/DL (0.89-1.76); GLOMERULAR FILTRATION RATE > 60.0 (>45); GLUCOSE, FASTING 88 MG/DL (74-106); POTASSIUM SERUM 4.4 MMOL/L (3.5-5.1); SODIUM LEVEL 143 MMOL/L (136-145); TRIGLYCERIDES LEVEL 240 MG/DL (<150)
[2024-01-14 11:54] LABS: THYROID STIMULATING HORMONE 1.044 uIU/ML (0.55-4.78)
[2024-01-14 11:55] LABS: TOTAL 25(OH) VITAMIN D 96.7 NG/ML (20.0-100.0)
== END ==
LOC: M PLALAB 08:15
PROVIDERS: ATTEND Physician Assistant
DX: Z00.00 Encounter for general adult medical examination without abnormal findings (principal); E55.9 Vitamin D deficiency, unspecified; E11.29 Type 2 diabetes mellitus with other diabetic kidney complication; E78.2 Mixed hyperlipidemia

== ENCOUNTER → 2024-09-19 | Outpatient (CLI) | payer MEDICAID, MEDICARE ==
[~2024-09-19] MED LIST changes: +ATOR-398; -LIPI80TA
[2024-09-19 17:36] LABS: BASO % 0.3 % (0.0-1.0); EOS # 0.2 10^3/uL (0.0-0.5); EOS % 2.3 % (0.0-3.0); HEMATOCRIT 37.9 % (36.0-47.0); HEMOGLOBIN 12.1 g/dl (12.0-15.5); LYMPH % 31.3 % (24.0-44.0); MEAN CORPUSCULAR HEMOGLOBIN 27.9 pg (27.0-33.0); MEAN CORPUSCULAR HGB CONC 31.9 g/dl (32.0-36.5); MEAN CORPUSCULAR VOLUME 87.3 fl (80.0-96.0); MONO # 0.6 10^3/uL (0.0-0.8); MONO % 9.1 % (2.0-8.0); NEUTROPHILS # 3.6 10^3/uL (1.5-8.5); NEUTROPHILS % 56.7 % (36.0-66.0); PLATELET COUNT, AUTOMATED 198 10^3/uL (150-450); RED BLOOD COUNT 4.34 10^6/uL (4.00-5.40); WHITE BLOOD COUNT 6.4 10^3/uL (4.0-10.0)
[2024-09-19 18:11] LABS: ALBUMIN 3.9 G/DL (3.2-5.2); ALKALINE PHOSPHATASE 139 U/L (35-104); ALT/SGPT 33 U/L (7.0-40); AST/SGOT 19 U/L (<34); BILIRUBIN,TOTAL 0.6 MG/DL (0.3-1.2); BLOOD UREA NITROGEN 25 MG/DL (9-23); CARBON DIOXIDE LEVEL 22 MMOL/L (20-31); CHLORIDE LEVEL 108 MMOL/L (98-107); CHOLESTEROL LEVEL 150 MG/DL (<200); CHOLESTEROL RISK RATIO 4.41 (<5); CREATININE FOR GFR 0.95 MG/DL (0.55-1.30); GLOMERULAR FILTRATION RATE > 60.0 (>45); GLUCOSE, FASTING 193 MG/DL (74-106); POTASSIUM SERUM 4.1 MMOL/L (3.5-5.1); SODIUM LEVEL 141 MMOL/L (136-145); TOTAL PROTEIN 7.2 G/DL (5.7-8.2); TRIGLYCERIDES LEVEL 496 MG/DL (<150)
[2024-09-19 18:12] LABS: THYROID STIMULATING HORMONE 1.105 uIU/ML (0.55-4.78)
[2024-09-19 19:14] LABS: HEMOGLOBIN A1c 6.7 % (4.0-6.0)
== END ==
LOC: M PLALAB 16:17
DX: E55.9 Vitamin D deficiency, unspecified (principal); E11.29 Type 2 diabetes mellitus with other diabetic kidney complication; E78.2 Mixed hyperlipidemia; Z13.29 Encounter for screening for other suspected endocrine disorder

== ENCOUNTER → 2025-01-12 | Outpatient (CLI) | payer MEDICAID, MEDICARE | LOC: M RAD 16:19 | PROVIDERS: ATTEND Internal Medicine Pulmonary Disease | DX: Z12.2 Encounter for screening for malignant neoplasm of respiratory organs (principal); Z87.891 Personal history of nicotine dependence; R91.8 Other nonspecific abnormal finding of lung field; I25.10 Atherosclerotic heart disease of native coronary artery without angina pectoris ==

== ENCOUNTER → 2025-09-03 | Outpatient (CLI) | payer MEDICAID, MEDICARE ==
[2025-09-03 17:34] LABS: BASO # 0.0 10^3/uL (0.0-0.2); BASO % 0.4 % (0.0-1.0); EOS # 0.1 10^3/uL (0.0-0.5); EOS % 1.8 % (0.0-3.0); LYMPH # 2.1 10^3/uL (1.5-5.0); LYMPH % 26.4 % (24.0-44.0); MONO # 0.7 10^3/uL (0.0-0.8); MONO % 8.8 % (2.0-8.0); NEUTROPHILS # 4.9 10^3/uL (1.5-8.5); NEUTROPHILS % 62.3 % (36.0-66.0); PLATELET COUNT, AUTOMATED 216 10^3/uL (150-450)
[2025-09-03 18:04] LABS: ALT/SGPT 39.0 U/L (7.0-40); AST/SGOT 23.0 U/L (<34); CALCIUM LEVEL 10.1 MG/DL (8.3-10.6); CARBON DIOXIDE LEVEL 28.0 MMOL/L (20-31); CHLORIDE LEVEL 107.0 MMOL/L (98-107); CHOLESTEROL LEVEL 126.0 MG/DL (<200); CHOLESTEROL RISK RATIO 3.44 (<5); CREATININE FOR GFR 0.94 MG/DL (0.55-1.30); GLOMERULAR FILTRATION RATE 66.1 (>45); LDL CHOLESTEROL 37.2 MG/DL (<100); NON-HDL-C 89.4 MG/DL; POTASSIUM SERUM 4.5 MMOL/L (3.5-5.1); SODIUM LEVEL 146.0 MMOL/L (136-145); TRIGLYCERIDES LEVEL 261.0 MG/DL (<150)
[2025-09-03 18:05] LABS: FREE T4 1.35 NG/DL (0.89-1.76)
[2025-09-03 18:06] LABS: TOTAL 25(OH) VITAMIN D 56.6 NG/ML (20.0-100.0)
[2025-09-03 18:31] LABS: ESTIMATED AVERAGE GLUCOSE 160.0 MG/DL (60-110)
== END ==
LOC: M PLALAB 15:53
DX: R91.1 Solitary pulmonary nodule (principal); Z13.29 Encounter for screening for other suspected endocrine disorder; E11.29 Type 2 diabetes mellitus with other diabetic kidney complication; E78.2 Mixed hyperlipidemia